=== PATIENT | male | born 1970 | race Two or more races ===

== ENCOUNTER 2024-02-08 09:05 | Day surgery (SDC) | payer MEDICAID, SELFPAY ==
--- NOTE | 2024-02-05 07:00 | EKG_ITS ---
[facility] Test Date: 2024-02-05 Pat Name: MASTER BRO Department: Room: - Gender: Male Account Contact Associate: JAVON : 1970 Requested By: Marty Crow Order Number: [id number] Reading MD: Marty Crow Measurements Intervals [place] Rate: 84 P: -1 IN: 147 QRS: -25 QRSD: 101 T: 0 QT: 324 QTc: 383 Interpretive Statements SINUS RHYTHM BORDERLINE LEFT AXIS DEVIATION No previous ECG available for comparison /[id number]/[email or web address]/[id number]
[2024-02-05 08:30] VITALS: BMI 28.2
[2024-02-05 09:07] LABS: Collection Type, Urine Clean Catch; Squamous Epithelial Cell,Urine 0 /hpf (0-5)
[2024-02-05 09:29] LABS: Basophils # (Auto) 0.1 Thou/mm3 (0.0-0.2); Basophils % (Auto) 1 % (0-2.5); Eosinophils # (Auto) 0.1 Thou/mm3 (0.0-0.5); Eosinophils % (Auto) 1 % (0-10); Hematocrit 47.6 % (41.0-53.0); Hemoglobin 16.1 g/dL (13.5-16.0); Immature Granulocytes % (Auto) 0 % (0-0); Immature Granulocytes Auto 0.03 Thou/mm3 (0.00-0.00); Lymphocytes # (Auto) 2.7 Thou/mm3 (1.0-4.8); Lymphocytes % (Auto) 26 % (10-50); Mean Corpuscular HGB Conc 33.8 g/dl (31.0-37.0); Mean Corpuscular Hemoglobin 30.3 pg (25.0-35.0); Mean Corpuscular Volume 90 fL (80-100); Monocytes # (Auto) 0.6 Thou/mm3 (0.0-0.8); Monocytes % (Auto) 6 % (0-12); Neutrophils # (Auto) 6.9 Thou/mm3 (1.8-7.7); Neutrophils % (Auto) 66 % (37-80); Nucleated Red Blood Cell % 0 /100 WBC (0); Platelet Count 270 Thou/mm3 (140-440); RDW Standard Deviation 38.5 fL (35.1-43.9); Red Blood Count 5.31 Miln/mm3 (4.50-5.90); White Blood Count 10.4 Thou/mm3 (3.8-10.6)
[2024-02-05 09:31] LABS: Bacteria,Urine Rare; Bilirubin,Urine Negative (Negative); Blood,Urine 1+ (Negative); Clarity,Urine Clear (Clear/Hazy); Color,Urine Yellow (Lt Yel-Yel); Glucose, Urine Negative (Negative); Ketones,Urine Negative (Negative); Leukocyte Esterase,Urine Negative (Negative); Nitrite,Urine Negative (Negative); Protein,Urine Negative (Neg - Trace); RBC,Urine 3 /hpf (0-3); Urobilinogen,Urine Negative mg/dL (0.0-1.0); WBC,Urine < 1 /hpf (0-5)
[2024-02-05 09:37] LABS: INR 1.1 (0.9-1.3); Partial Thromboplastin Time 29.1 Seconds (22.0-36.0); Prothrombin Time 12.3 Seconds (9.0-12.2)
[2024-02-05 09:42] LABS: Alanine Aminotransferase 38 U/L (10-49); Albumin, Serum 5.4 gm/dL (3.5-5.0); Albumin/Globulin Ratio 2.1 (1.2-2.2); Alkaline Phosphatase 108 U/L (46-116); Anion Gap 7 (7-16); Aspartate Amino Transferase 26 U/L (0-34); BUN/Creatinine Ratio 7 Ratio (12-20); Bilirubin,Total 1.2 mg/dL (0.3-1.2); Blood Urea Nitrogen 7 mg/dL (9-23); Carbon Dioxide 25.8 mMol/L (20.0-31.0); Chloride 104 mMol/L (98-107); Estimated Creatinine Clearance 109.1 mL/min (>60); Globulin 2.6 gm/dL (2.3-3.5); Glucose 120 mg/dL (74-106); Osmolality,Calculated 272 (275-295); Potassium 4.1 mMol/L (3.4-5.1); Sodium 137 mMol/L (136-145); eGFR > 60 See Note
--- NOTE | 2024-02-05 13:46 | PD.SURHP ---
HPI Date of Admission February 08 2024 Chief Complaint Chief Complaint: Painful mass in the right breast at 10 o'clock position. HPI This 53-year-old gentleman is brought to the hospital for excision of a painful mass in the right breast at 10 o'clock position. He developed this mass over a period of time and is continuously growing in size and is concerned that it may be a cancer. This will be removed. Risk benefits alternatives were discussed with the patient and informed consent is obtained. Past Medical History Past Medical History NEUROLOGIC: Negative Neurological Disorders CARDIAC: Negative Cardiac Disorders or Congestive Heart Failure RESPIRATORY: Negative Respiratory Disorders or Chronic Obstructive Pulmonary Disease (COPD) GASTROINTESTINAL: Negative Gastrointestinal Disorders or Hepatitis GENITOURINARY: Negative Genitourinary Disorders or Renal Disease MUSCULOSKELETAL: Positive Musculoskeletal Disorders and Arthritis ENT: Negative History of ENT Problems ENDOCRINE: Negative Endocrine Disorders, Diabetes Mellitus Type 1 or Diabetes Mellitus Type 2 HEMATOLOGIC: Negative Blood Disorders OTHER HISTORY: Positive Mumps; Negative Hospitalization, Autoimmune Disease, Shingles, Blood Transfusions, Anesthesia Reactions or Cancer Family History FAMILY HISTORY: Positive Family Cardiac Disorders, Family Cancer and Family Surgery; Negative Family Psychiatric Problems, Family Respiratory Disorders, Family Gastrointestinal Problems, Family Genitourinary Problems, Family Endocrine Disorders, Family Reproductive Disorders, Family Musculoskeletal Disorders or Family Anesthesia Reaction Surgical History SURGICAL: Positive Abdominal Surgery and Arthroscopy (right knee) Social History SMOKING STATUS: Current some day smoker Travel History EB[place] RISK: No Meds Home Medications and Allergies Home Medications ?Medication ?Instructions ?Recorded ?Confirmed ?Type acetaminophen 325 mg tablet 650 mg PO QID PRN Pain 02/05/24 02/05/24 History (Tylenol) Allergies Allergy/AdvReac Type Severity Reaction Status Date / Time No Known Allergies Allergy Verified 02/05/24 08:29 Exam Constitutional Constitutional: no acute distress Routine HEENT Exam Head: Present normocephalic Eye: Present EOMI and PERRL ENT: Present mucous membranes moist Routine Neck Exam Neck: Present supple and trachea midline Routine Chest/Breast/Axilla Exam Chest wall: Absent tenderness or mass Breast: Present mass (There is a painful mass at 10 o'clock position in the right breast there is no involvement of the skin there is no hyperemia there is no drainage this could be a breast tumor versus lipoma.) Routine Respiratory Exam Respiratory: Present chest non-tender, lungs clear, normal breath sounds and no resp distress; Absent respiratory distress Routine Cardiovascular Exam Cardiovascular: Present RRR Routine Abdominal Exam Abdominal: Present soft and normoactive bowel sounds Routine Extremities Exam Extremities: Present full ROM Routine Skin Exam Skin: Present intact, dry and warm Routine Neurological Exam Neurological: Present alert, oriented X3 and CN II-XII intact Routine Psychiatric Exam Psychiatric: Present normal affect and normal thought process Assessment & Plan Problem List (1) Mass of right breast: Qualifiers: Breast mass location: upper outer quadrant Qualified Code(s): N63.11 - Unspecified lump in the right breast, upper outer quadrant Status: Acute Plan Excision of the right breast mass at 10 o'clock position. Risk benefits alternatives were discussed with the patient and informed consent is obtained. Quality Measures Quality Measures none
[2024-02-08] VITALS (9 sets, daily range): BP systolic 123–161; BP diastolic 76–102; PULSE 69–87; RESP 12–18; TEMP 36.2–36.6; O2SAT 95–98; BMI 28.3
[2024-02-08] MEDS: RINGERS LACTATED 1000 ML 1,000 ML 60 ML IV (10:20)
--- NOTE | 2024-02-08 12:36 | PD.SUROPNT ---
Date of Procedure 02/08/24 Pre Op Diagnosis Right breast mass at 10 o'clock position Post Op Diagnosis Same. Procedure Localization with ultrasound and excision of right breast mass at 10 o'clock position on 02/08/2020 Findings There is a mass which measures about 5 cm x 6 cm in appears to be lipomatous. There were no other findings. Procedure Description The patient is interviewed in the preop area and site and side were marked. The procedure was discussed in great detail with the patient and the family member. All questions were answered and informed consent is obtained. Patient was then taken to the operating room and patient is positioned supine on the operating table. The general anesthesia was administered in a satisfactory manner. Realtime ultrasound is carried out and mass is identified and localized. Patient is prepped and draped in usual manner. The above-mentioned mass is identified again. Local anesthesia 0.25% Marcaine with epinephrine is infiltrated. Curvilinear transverse incision is made at 10 o'clock position. The upper and lower flaps were developed to the level of the breast and subcutaneous tissue. The flaps are extended medially and laterally. A margin is a included in the resection. Breast parenchymal incision is made and carried to the pectoral fascia in the circumferential manner. Hemostasis is achieved. The mass is removed in its entirety with a margin. The excision cavity is examined from the inside and there are no other masses. Hemostasis is achieved. Specimen is sent off for pathologic examination. The breast tissue and subcutaneous tissues approximated by 3-0 Vicryl interrupted stitches. Skin is approximated by 4-0 Monocryl continuous subcuticular stitches. Steritapes are applied. Patient tolerated the procedure very well complications none. Anesthesia GETA Drains None. Implants None. Pathology / specimen Other (Right breast mass at 10 o'clock position) Estimated Blood Loss 5 Condition Stable Disposition PACU Surgeon Marty Crow MD Surgical Staff Operation Date: 02/08/24 11:00 Case Staff Anesthesiologist: Ashish Monk RN First Assistant: Mitzy Franklin RN cv rn [place] certified ophthalmic surgical assistant (1) Mass of right breast Qualifiers: Breast mass location: upper outer quadrant Qualified Code(s): N63.11 - Unspecified lump in the right breast, upper outer quadrant
--- NOTE | 2024-02-08 12:43 | SUR.PHASEI ---
pt received from OR in recovery bay 1. pt asleep but responds to voice, breathing unlabored on 2l nc. v/s stable. pt dressing to right breast cdi. report received from Dr. Monk and Val HERNANDEZ.
[2024-02-08] MEDS: fentaNYL CIT INJ 50 mCg/ML AMP 2ML 25 MCG IVP ×4 (12:57→13:50)
[2024-02-08] MEDS: ACETAMINOPHEN IVPB 1,000 MG/100 ML VIAL 250 MG IV (13:01)
--- NOTE | 2024-02-08 13:22 | SUR.PHASEII ---
pt able to tolerate oral fluids without difficulty swallowing or nausea/vomiting.
[2024-02-08] MEDS: KETOROLAC INJ 30 MG/ML VIAL IVP (13:30)
--- NOTE | 2024-02-08 14:12 | SUR.PHASEII ---
pt awake and alert, breathing unlabored on room air. v/s stable. pt dressing to right breast cdi. pt able to ambulate to wheelchair with steady gait. d/c instructions with Dalila in room using supervisor dried yeast Carmita rabago, all questions answered. pt d/c via wheelchair with all belongings.
== END 2024-02-08 14:12 | disposition home or self-care (01) ==
PROVIDERS: PCP Physician Assistant; Referring Provider Specialist; Visit Provider Specialist
PROC: (CPT 19120; principal; 2024-02-08 10:45)
DX: D24.1 Benign neoplasm of right breast (principal); Z01.810 Encounter for preprocedural cardiovascular examination; F17.200 Nicotine dependence, unspecified, uncomplicated
CPT/HCPCS: 19120; 36415; 80053; 81001; 85025; 85610; 85730; 93005; A4217; A4649; J0131; J0690; J1885; J2250; J2405; J2704; J2765; J3010; J7120